=== PATIENT | female | born 1945 | race Caucasian/White ===

== ENCOUNTER 2017-02-13 05:30 | Day surgery (SDC) | payer MEDICARE, OTHER ==
[~2017-02-13] VITALS: Ht 152.4 cm; Wt 62.3 kg
[~2017-02-13 05:30] MED LIST: ACETAMINOPHEN/CODEINE 300-30 MG TABLET PO PRN; AcetaZOLAMIDE 250 MG TABLET PO ONE; RINGERS SOLUTION,LACTATED 500 ML IV ONE; TETRACAINE HCL/PF 0.5% 4 ML OPHTHALMIC SOLUTION OD ONE
[2017-02-13] MEDS ORDERED: CYCLOPENTOLATE HCL 2% 2 ML OPHTHALMIC SOLUTION ONE (06:07)
[2017-02-13] MEDS ORDERED: TETRACAINE HCL/PF 0.5% 4 ML OPHTHALMIC SOLUTION ONE (06:07)
[2017-02-13] MEDS ORDERED: DICLOFENAC SODIUM 0.1% 2.5 ML OPHTHALMIC SOLUTION ONE (06:07)
[2017-02-13] MEDS ORDERED: RINGERS SOLUTION,LACTATED 500 ML IV ONE (06:07)
[2017-02-13] MEDS ORDERED: MOXIFLOXACIN HCL 0.5% 3 ML OPHTHALMIC SOLUTION ONE (06:07)
[2017-02-13] MEDS ORDERED: PHENYLEPHRINE HCL 2.5% 2 ML OPHTHALMIC SOLUTION ONE (06:07)
[2017-02-13] MEDS ORDERED: ASPI-1061 PO (06:30)
[2017-02-13] MEDS ORDERED: ERGO2000 PO (06:30)
[2017-02-13] MEDS ORDERED: DULO60CA44 PO (06:30)
[2017-02-13] MEDS ORDERED: PANT40TA25 PO (06:30)
[2017-02-13] MEDS ORDERED: AMLO-511 PO (06:30)
[2017-02-13] MEDS ORDERED: ATEN25 PO (06:30)
[2017-02-13] MEDS ORDERED: ATOR20TA86 PO (06:30)
[2017-02-13] MEDS: PHENYLEPHRINE HCL 2.5% 2 ML OPHTHALMIC SOLUTION OD SCH ×3 (06:46→06:57)
[2017-02-13] MEDS: CYCLOPENTOLATE HCL 2% 2 ML OPHTHALMIC SOLUTION OD SCH ×3 (06:47→06:57)
[2017-02-13] MEDS: DICLOFENAC SODIUM 0.1% 2.5 ML OPHTHALMIC SOLUTION OD SCH ×3 (06:47→07:09)
[2017-02-13] MEDS: MOXIFLOXACIN HCL 0.5% 3 ML OPHTHALMIC SOLUTION OD SCH ×3 (06:47→07:09)
[2017-02-13] MEDS ORDERED: AcetaZOLAMIDE 250 MG TABLET ONE (08:26)
[2017-02-13] MEDS ORDERED: HYALURONATE SOD/CHONDROITIN SOD 0.5 ML VIAL IO ONE (17:37)
[2017-02-13] MEDS ORDERED: EPINEPHrine 1:1,000 [1 MG/ML] AMP IM ONE (17:37)
[2017-02-13] MEDS ORDERED: TETRACAINE HCL VISCOUS 0.5% 5 ML OPHTHALMIC SOLUTION OS ONE (17:37)
[2017-02-13] MEDS ORDERED: POVIDONE-IODINE 10% 15 ML SOLUTION UD TP ONE (17:37)
[2017-02-13] MEDS ORDERED: HYALURONATE SODIUM 12 MG/ML 0.8 ML SYRINGE IO ONE (17:37)
[2017-02-13] MEDS ORDERED: LIDOCAINE HCL/PF 1% 2 ML VIAL IM ONE (17:37)
== END 2017-02-13 09:05 | disposition home or self-care (01) ==
LOC: SURGERY 05:30
PROVIDERS: ATTEND Ophthalmology
DX: H25.11 Age-related nuclear cataract, right eye (principal); I10 Essential (primary) hypertension; J45.909 Unspecified asthma, uncomplicated; F32.9 Major depressive disorder, single episode, unspecified; K21.9 Gastro-esophageal reflux disease without esophagitis; M41.9 Scoliosis, unspecified; E66.01 Morbid (severe) obesity due to excess calories; Z90.49 Acquired absence of other specified parts of digestive tract; Z98.890 Other specified postprocedural states; Z96.653 Presence of artificial knee joint, bilateral
CPT/HCPCS: 66984; 93005; C1780; J0171; J3490 ×2; J7120